=== PATIENT | female | born 1990 | race American Indian/Alaskan Native ===

== ENCOUNTER 2019-04-07 09:13 | Emergency (ER) | payer OTHER ==
[~2019-04-07] VITALS: Ht 165.1 cm; Wt 99.8 kg
[~2019-04-07 09:13] MED LIST: CIPRO500 MG PO; IBUPROFEN800 MG PO; NAPROSYN500 MG PO; NORCO 5-325 TA1 EACH PO; PERCOCET 5-3251 EACH PO; ZOFRAN ODT8 MG PO; ZOFRAN4 MG PO
[2019-04-07] MEDS ORDERED: PRAZOSIN HCL1 MG PO (09:33)
[2019-04-07] MEDS ORDERED: CITALOPRAM HBR40 MG PO (09:33)
[2019-04-07] MEDS ORDERED: ONDANSETRON ODT8 MG PO (10:55)
[2019-04-07] MEDS ORDERED: KEFLEX500 MG PO (10:55)
[2019-04-07] MEDS ORDERED: NORCO 5-325 TA1 EACH PO (20:40)
== END 2019-04-07 11:17 | disposition home or self-care (01) ==
LOC: ED 09:13
DX: N12 Tubulo-interstitial nephritis, not specified as acute or chronic (principal); Z87.442 Personal history of urinary calculi; Z79.899 Other long term (current) drug therapy
CPT/HCPCS: 80053; 81001; 85025; 87077; 87088; 87186; 96374; 96375; 99284-25; J0696; J1885; J2405; J7030

== ENCOUNTER 2019-04-07 17:55 | Emergency (ER) | payer OTHER ==
[~2019-04-07] VITALS: Ht 165.1 cm; Wt 99.8 kg
[~2019-04-07 17:55] MED LIST changes: +CITALOPRAM HBR40 MG PO; +KEFLEX500 MG PO; +ONDANSETRON ODT8 MG PO; +PRAZOSIN HCL1 MG PO
--- OUTSIDE RECORDS SUMMARY | 2019-04-07 17:58 | XMS ---
PreManage Notification: ANTOLIN JENKINS [employer] Events No recent Security Events currently on file CRITERIA MET - [facility] - 2 Visits in 30 Days CARE PROVIDERS There are no care providers on record at this time. Carie has no Care Guidelines for this patient. Nithin VISIT COUNT (12 MO.) 1 [facility] NOTE: Visits indicate total known visits. ED/UCC VISIT TRACKING (12 MO.) 04[facility]07/2019 17[facility]56 [facility] COMPLAINT: - KIDNEY PAIN 04/07/2019 09:14 ALEXANDR Perla [place] TYPE: Emergency COMPLAINT: - BILATE FLANK PAIN 11/25/2018 16:50 Niko BARBER [place] TYPE: Emergency DIAGNOSES: - Knee Injury - Sprain of unspecified site of right knee, initial encounter - right leg pain INPATIENT VISIT TRACKING (12 MO.) No inpatient visits to display in this time frame [email or web address]
[2019-04-07] MEDS ORDERED: NORCO 5-325 TA1 EACH PO (20:40)
== END 2019-04-07 20:50 | disposition home or self-care (01) ==
LOC: ED 17:55
DX: N12 Tubulo-interstitial nephritis, not specified as acute or chronic (principal); Z87.442 Personal history of urinary calculi; Z79.899 Other long term (current) drug therapy
CPT/HCPCS: 74176; 83605; 84703; 85025; 96361; 96374; 96375; 99284-25; J1885; J2405; J7030